=== PATIENT | male | born 1940 | race Caucasian/White ===

== ENCOUNTER 2016-06-19 01:02 | Emergency (ER) | payer MEDICARE, BC ==
[2016-06-19 01:42] VITALS: BMI 14.9
--- NOTE | 2016-06-19 03:20 | DIRPT ---
CLINICAL DATA: Shortness of breath, cough and congestion for 1 month. EXAM: CHEST 2 VIEW COMPARISON: Chest CT 04/28/2016 FINDINGS: Hyperinflation with advanced emphysema. The left apical nodular opacity is not well seen radiographically. The heart is normal in size. Mediastinal contours are normal. Possible vascular congestion. Blunting of the posterior costophrenic angles, small effusions versus secondary to hyperinflation. No consolidation to suggest pneumonia. No pneumothorax. No acute osseous abnormality is seen. IMPRESSION: Chronic hyperinflation and emphysema. Possible vascular congestion. Blunting of the costophrenic angles may be secondary to hyperinflation versus small effusions. The left apical nodule on prior CT is not well seen radiographically Electronically Signed By: Kelsi Foley M.D. On: 06/19/2016 03:17
--- NOTE | 2016-06-19 03:32 | EDPRACDOC ---
- General Information Chief Complaint: Dyspnea/Resp distress Stated Complaint: SHOB Time Seen by Provider: 06/19/16 01:50 Information Source: Patient Home Medications: Home Medications Paroxetine HCl [Paxil] 40 mg PO DAILY 07/05/12 Tiotropium [Spiriva Handihaler] 18 mcg INH DAILY 07/05/12 Albuterol Sulfate [Proair Hfa] 2 puff INH Q4 PRN #1 inhaler 06/04/14 Oseltamivir Phosphate [Tamiflu] 75 mg PO BID #10 capsule 06/04/14 Prednisone 10 mg PO DAILY #12 tab 06/04/14 Ipratropium/Albuterol Sulfate [Combivent Respimat Inhal [place]] 4 gm IH QID PRN # 2 aer.w.adap 06/19/16 Prednisone [Deltasone, Orasone] 20 mg PO DAILY #20 tab 06/19/16 Allergies/Adverse Reactions: Allergies Allergy/AdvReac Type Severity Reaction Status Date / Time atorvastatin calcium Allergy Nausea only Verified 06/04/14 08:24 [From Lipitor] - History of Present Illness Shortness of Breath: Mild Relevant History: Reports: COPD Cough: Reports: Non-productive Rhinorrhea: Reports: Clear SOB Worsens with: Reports: Coughing SOB Improves with: Reports: Inhaler, Rest Recently treated infections:: Reports: URI (INITIALLY AMOX, NOW LEVAQUIN. ONLY FEW DAYS OF PREDNISONE - STOPPED B/C INSOMNIA) Associated Signs and symptoms: Reports: Cough, Nasal Symptoms. Denies: Fever, Vomiting, Diarrhea, Myalgia ED Past Medical History - History Reviewed Yes Nurses notes reviewed and agree except as marked - Patient Medical History Respiratory History: Reports: Asthma, COPD, Pneumonia (JUN 2012), Emphysema Musculoskeletal History: Reports: Arthritis (BACK) Psychological History: Reports: Anxiety. Denies: Depression Systemic History: Reports: Anemia ( CHILD). Denies: Cancer - Family Medical History Reports: Cardiac Disorders. Denies: Hypertension, Diabetes, Cancer, Stroke - Social Medical History Smoking Status: Heavy tobacco smoker (5 or more cigarettes/day or daily pipe/ cigar) EDM Review of Systems - Review of Systems ROS Negative Except as Marked: Yes All systems reviewed and were negative except as marked - Physical Exam Constitutional: No apparent distress, Alert Oriented to: Time, Person, Place Last recorded Vital Signs: Last Vital Signs Temp 97.8 F 06/19/16 01:35 Pulse 68 06/19/16 01:56 Resp 20 06/19/16 01:56 BP 108/61 06/19/16 01:56 Pulse Ox 96 06/19/16 01:56 Oxygen Pulse Oxygen Saturation 96 O2 Device Room Air Oxygen Flow Rate Fraction of Inspired Oxygen ( FIO2) - HEENT Head: Normal Eye Exam: Normal. negative: Pale Conjunctiva, Scleral Icterus Oropharynx: Normal. negative: Membranes Dry - Respiratory/Cardiovascular Respiratory: Normal - CTA. negative: Rales, Rhonchi, Wheezes Cardiovascular: Normal. negative: Diastolic murmur, Systolic murmur - GI Auscultation: Normal Palpation: Normal Tenderness: Non tender - Musculoskeletal Extremities: Normal. negative: Pedal Edema - Integumentary Skin: Normal - Neurologic Memory Impaired: Normal Mood Description: Normal - Departure Condition: Stable Final Diagnosis: Viral upper respiratory illness, COPD with exacerbation Instructions: Upper Respiratory Infection (ED), COPD (Chronic Obstructive Pulmonary Disease) (ED) Education/Counseling Given To: Patient, Family Member Education/Counseling Given Regarding: Diagnosis, Treatment, Prognosis Referrals: Gómez Padilla II, MD [Primary Care Provider] - One Week Prescriptions: Ipratropium/Albuterol Sulfate [Combivent Respimat Inhal [place]] 4 gm IH QID PRN # 2 aer.w.adap PRN Reason: SHORT OF BREATH OR WHEEZING Prednisone [Deltasone, Orasone] 20 mg PO DAILY #20 tab
[2016-06-19] MEDS ORDERED: PREDNISONE 50 MG TAB PO ONE (03:33)
[2016-06-19] MEDS ORDERED: PREDNISONE 20 MG TAB PO ONE (03:45)
[2016-06-19 04:37] VITALS: BP 113/67; PULSE 64; TEMP 98.5
== END 2016-06-19 04:36 | disposition home or self-care (01) ==
LOC: ED 01:02
DX: J44.1 Chronic obstructive pulmonary disease with (acute) exacerbation (principal); J06.9 Acute upper respiratory infection, unspecified
CPT/HCPCS: 71020; 94664; 99283; A9270; J3490